=== PATIENT | male | born 1965 | race Caucasian/White ===

== ENCOUNTER 2020-09-25 04:42 | Observation (INO) | payer OTHER ==
[2020-09-25 05:22] VITALS: BMI 23.0
[2020-09-25 05:41] LABS: BASO % 0.5 % (0-2.0); EOS % 0.4 % (0-4.5); HEMATOCRIT 38.1 % (35.4-49); HEMOGLOBIN 13.7 GM/dL (11.7-16.9); LYMPH % 8.4 % (8-40); MCH 31.1 pg (25.7-33.7); MEAN CELL VOLUME 86.2 fl (80-96); MEAN PLT VOLUME 7.6 fl (7.5-11.1); MONO % 5.5 % (3.8-10.2); NEUT % 85.2 % (42.8-82.8); PLATELET COUNT 181 K/MM3 (134-434); RBC 4.42 M/mm3 (4.00-5.60); RDW 12.7 % (11.9-15.9); WHITE BLOOD COUNT 15.4 K/mm3 (4.0-10.0)
[2020-09-25 05:53] LABS: INR 1.1 (0.83-1.09); PROTHROMBIN TIME (PATIENT) 13.3 SEC (9.7-13.0)
[2020-09-25 05:56] LABS: ACTIVATED PTT 29.4 SECONDS (25.2-36.5); CHLORIDE 105 mmol/L (98-107); POTASSIUM 4.5 mmol/L (3.5-5.1); SODIUM 137 mmol/L (136-145)
[2020-09-25 05:58] LABS: CALCIUM 8.8 mg/dL (8.5-10.1)
[2020-09-25 05:59] LABS: ALBUMIN 4.4 g/dl (3.4-5.0); ANION GAP 4 MMOL/L (8-16); BLOOD UREA NITROGEN 16.9 mg/dL (7-18); CO2 28 mmol/L (21-32); GLUCOSE,RANDOM 113 mg/dL (74-106)
[2020-09-25] MEDS ORDERED: ASPIRIN 81 MG CHEWABLE TABLETS PO ONE (06:00)
[2020-09-25 06:02] LABS: CREATININE 0.9 mg/dL (0.55-1.3); SGOT/AST 30 U/L (15-37); SGPT/ALT 50 U/L (13-61)
[2020-09-25 06:04] LABS: BILIRUBIN,TOTAL 0.8 mg/dL (0.2-1); TOT PROT 7.1 g/dl (6.4-8.2)
[2020-09-25 06:05] LABS: ALK PHOS 68 U/L (45-117)
[2020-09-25] MEDS ORDERED: HEPARIN NA (PORCINE) 5,000 UNITS/ML 1ML VIAL SQ SCH ×2 (10:00→14:56)
[2020-09-25] MEDS ORDERED: HEPARIN NA (PORCINE) 5,000 UNITS/ML 1ML VIAL ONE (11:16)
[2020-09-25] MEDS ORDERED: IBUPROFEN 200 MG TABLET PO PRN (13:47)
[2020-09-25] MEDS ORDERED: ASCORBIC ACID 250 MG TABLET (FP) PO SCH (14:00)
[2020-09-25 14:22] VITALS: BP 103/56; PULSE 97; TEMP 99.8
[2020-09-25 14:38] LABS: CHOLESTEROL 210 mg/dL (50-200)
[2020-09-25] MEDS ORDERED: PANTOPRAZOLE 20 MG TABLET PO ONE ×2 (16:29→16:32)
== END 2020-09-25 16:50 | disposition left against medical advice (07) ==
LOC: JER 04:42 → JERBED 06:55 → INTOOBSV 06:55 → JERBED 17:00
PROVIDERS: ADMIT Internal Medicine; ATTEND Internal Medicine
DX: R07.9 Chest pain, unspecified (principal); E78.00 Pure hypercholesterolemia, unspecified
CPT/HCPCS: 36415; 71046-TC-FY; 80053; 82465; 82550; 84443; 84484; 85025; 85610; 85730; 93005; 93010; 99285-25; G0378